=== PATIENT | female | born 1975 | race Caucasian/White ===

== ENCOUNTER 2018-02-01 12:21 | Emergency (ER) | payer OTHER, SELFPAY ==
[2018-02-01] MEDS: METOCLOPRAMIDE INJ 10MG/2ML VIAL (J2765) IV (13:18)
[2018-02-01] MEDS: NS 1,000 ML IV (13:18)
[2018-02-01] MEDS: KETOROLAC 30 MG/ML VIAL (J1885) IV (13:18)
[2018-02-01] MEDS: MORPHINE 4 MG/ML 1ML VIAL/SYRINGE (J2270) IV (13:18)
[2018-02-01 13:56] LABS: KETONE, URINE AUTO RFX NEGATIVE (NEGATIVE); MUCUS, URINE RFX SMALL (NEGATIVE); NITRITE, URINE AUTO RFX NEGATIVE (NEGATIVE); RBC, URINE AUTO RFX 27 /HPF (0-3); SPECIFIC GRAVITY UR AUTO RFX 1.019 (1.002-1.035); SQUAM EPITHELIAL CELL UR AURFX 1 /HPF (0-6); WBC, URINE AUTO RFX 9 /HPF (0-3)
[2018-02-01 14:01] LABS: LEUKOCYTE ESTERASE UR AUTO RFX TRACE (NEGATIVE)
== END 2018-02-01 14:29 | disposition home or self-care (01) ==
LOC: M ED 12:21
DX: N20.1 Calculus of ureter (principal); N39.0 Urinary tract infection, site not specified; Z79.899 Other long term (current) drug therapy
CPT/HCPCS: J2270

== ENCOUNTER 2018-05-18 17:02 | Emergency (ER) | payer OTHER ==
[~2018-05-18] VITALS: Ht 167.6 cm; Wt 99.1 kg
[~2018-05-18 17:02] MED LIST: CIPR-249 PO; FLUO40CA; GABA-1171; PERC5TAB12 PO; TAMS1CAP17; VITA1CAP25; VYVA40CA3
[2018-05-18] MEDS ORDERED: FOLI1TAB11 PO (17:12)
[2018-05-18] MEDS ORDERED: MIRA0.12 PO (17:12)
[2018-05-18 17:57] LABS: HEMATOCRIT 38.9 % (36.0-47.0); HEMOGLOBIN 12.6 g/dl (12.0-15.5); MEAN CORPUSCULAR HEMOGLOBIN 28.3 pg (27.0-33.0); MEAN CORPUSCULAR HGB CONC 32.4 g/dl (32.0-36.5); MEAN CORPUSCULAR VOLUME 87.4 fl (80.0-96.0); PLATELET COUNT, AUTOMATED 384 10^3/uL (150-450); RED BLOOD COUNT 4.45 10^6/uL (4.00-5.40); WHITE BLOOD COUNT 9.8 10^3/uL (4.0-10.0)
[2018-05-18 18:22] LABS: HCG, SERUM QUALITATIVE NEGATIVE (NEGATIVE)
[2018-05-18 18:23] LABS: AMPHETAMINES LEVEL URINE POSITIVE (NEGATIVE); BARBITURATES URINE NEGATIVE (NEGATIVE); BENZODIAZEPINES URINE NEGATIVE (NEGATIVE); CANNABINOIDS URINE NEGATIVE (NEGATIVE); COCAINE METABOLITE URINE NEGATIVE (NEGATIVE); METHADONE URINE NEGATIVE (NEGATIVE); OPIATES URINE NEGATIVE (NEGATIVE); PHENCYCLIDINE URINE NEGATIVE (NEGATIVE)
[2018-05-18 18:33] LABS: ACETAMINOPHEN LEVEL < 2.0 UG/ML (10.0-30.0); ALBUMIN 3.6 GM/DL (3.2-5.2); ALT/SGPT 26 U/L (12-78); BILIRUBIN,DIRECT 0.1 MG/DL (0.0-0.2); BILIRUBIN,TOTAL 0.5 MG/DL (0.2-1.0); BLOOD UREA NITROGEN 11 MG/DL (7-18); CALCIUM LEVEL 8.2 MG/DL (8.5-10.1); CARBON DIOXIDE LEVEL 24 MEQ/L (21-32); CHLORIDE LEVEL 108 MEQ/L (98-107); CREATININE FOR GFR 0.92 MG/DL (0.55-1.30); ETHYL ALCOHOL (ETHANOL) < 0.003 % (0.000-0.010); GLOMERULAR FILTRATION RATE > 60.0 (>58); GLUCOSE, FASTING 79 MG/DL (70-100); POTASSIUM SERUM 3.8 MEQ/L (3.5-5.1); SALICYLATE LEVEL < 1.7 MG/DL (5.0-30.0); SODIUM LEVEL 140 MEQ/L (136-145); TOTAL PROTEIN 7.3 GM/DL (6.4-8.2)
[2018-05-18 21:21] VITALS: BP 120/75
--- NOTE | 2018-05-19 07:06 | ECGEPIP ---
Stationary ECG Study [facility] - ED Test Date: 2018-05-18 Pat Name: MORRIS CALVIN Department: Room: - Gender: F [employer]: af : 1975 Requested By: CUATE Tatum Order Number: [id number] Reading MD: Uziel Ramirez Measurements Intervals [place] Rate: 73 P: 5 MN: 123 QRS: 16 QRSD: 91 T: 25 QT: 414 QTc: 458 Interpretive Statements SINUS RHYTHM NO PRIORS FOR COMPARISON Electronically Signed On 05-19-2018 7:06:29 EST by Uziel Ramirez
== END 2018-05-18 21:33 | disposition home or self-care (01) ==
LOC: M ED 17:02
DX: F43.0 Acute stress reaction (principal); F32.9 Major depressive disorder, single episode, unspecified; J45.909 Unspecified asthma, uncomplicated; F42.9 Obsessive-compulsive disorder, unspecified; F43.10 Post-traumatic stress disorder, unspecified; F41.9 Anxiety disorder, unspecified; G25.81 Restless legs syndrome; Z79.899 Other long term (current) drug therapy
CPT/HCPCS: 36415; 80048; 80076; 80307; 84443; 84703; 85027; 93005; 99284; G0480

== ENCOUNTER 2019-01-14 21:43 | Emergency (ER) | payer OTHER ==
[~2019-01-14] VITALS: Ht 167.6 cm; Wt 100.0 kg
[~2019-01-14 21:43] MED LIST changes: +FOLI1TAB11 PO; +MIRA0.12 PO
[2019-01-14 21:44] VITALS: BP 164/98
[2019-01-14] MEDS ORDERED: VITA500045 (21:51)
[2019-01-14] MEDS ORDERED: AMOX875T2 (21:51)
[2019-01-14] MEDS ORDERED: VYVA70CA3 (21:51)
[2019-01-14] MEDS ORDERED: TRAM50TA2 (21:51)
[2019-01-14] MEDS ORDERED: LIDO2SOL9 (21:51)
[2019-01-14] MEDS ORDERED: IBUP80TA (21:51)
[2019-01-14] MEDS ORDERED: PRAMIPEXOLE (21:51)
[2019-01-14] MEDS ORDERED: BUPIVACAINE HCL 0.5% 10 ML VIAL SC ONE (22:45)
[2019-01-14] MEDS ORDERED: LIDOCAINE W/EPINEPHRINE 1% 20ML VIAL SC ONE (22:45)
[2019-01-14] MEDS ORDERED: CETACAINE SPRAY 5GM TOP ONE (22:45)
[2019-01-14 23:12] LABS: BASO # 0.1 10^3/uL (0.0-0.2); BASO % 0.8 % (0.0-1.0); EOS # 0.6 10^3/uL (0.0-0.5); HEMATOCRIT 40.6 % (36.0-47.0); HEMOGLOBIN 12.6 g/dl (12.0-15.5); LYMPH # 3.7 10^3/uL (1.5-5.0); LYMPH % 33.6 % (24.0-44.0); MEAN CORPUSCULAR HEMOGLOBIN 28.4 pg (27.0-33.0); MEAN CORPUSCULAR VOLUME 91.4 fl (80.0-96.0); MONO # 0.7 10^3/uL (0.0-0.8); MONO % 6.5 % (0.0-5.0); NEUTROPHILS % 53.7 % (36.0-66.0); PLATELET COUNT, AUTOMATED 399 10^3/uL (150-450); RED BLOOD COUNT 4.44 10^6/uL (4.00-5.40); WHITE BLOOD COUNT 11.1 10^3/uL (4.0-10.0)
== END 2019-01-14 23:32 | disposition home or self-care (01) ==
LOC: M ED 21:43
DX: K02.9 Dental caries, unspecified (principal); K08.89 Other specified disorders of teeth and supporting structures; R51 Headache; F17.210 Nicotine dependence, cigarettes, uncomplicated; Z79.899 Other long term (current) drug therapy; Z79.2 Long term (current) use of antibiotics

== ENCOUNTER → 2022-05-19 | Outpatient (CLI) | payer BC ==
[~2022-05-19] MED LIST changes: +AMOX875T2; +IBUP80TA; +LIDO2SOL9; +PRAMIPEXOLE; +TRAM50TA2; +VITA500045; +VYVA70CA3
== END ==
LOC: M PLALAB 09:50
PROVIDERS: ATTEND Internal Medicine Endocrinology, Diabetes & Metabolism
DX: E04.9 Nontoxic goiter, unspecified (principal)

== ENCOUNTER → 2022-09-01 | Outpatient (CLI) | payer BC ==
[~2022-09-01] MED LIST changes: +LIDO2SOBTL; -LIDO2SOL9
== END ==
LOC: M PLALAB 11:13
PROVIDERS: ATTEND Nurse Practitioner Family
DX: Z01.419 Encounter for gynecological examination (general) (routine) without abnormal findings (principal)

== ENCOUNTER → 2022-09-01 | Outpatient (CLI) | payer BC | LOC: M WHC 08:44 | PROVIDERS: ATTEND Nurse Practitioner Family | DX: Z12.31 Encounter for screening mammogram for malignant neoplasm of breast (principal) ==

== ENCOUNTER → 2022-09-16 | Outpatient (CLI) | payer BC | LOC: M WHC 07:33 | PROVIDERS: ATTEND Nurse Practitioner Family | DX: Z12.31 Encounter for screening mammogram for malignant neoplasm of breast (principal) | CPT/HCPCS: 76641; 77065; G0279 ==